=== PATIENT | male | born 1945 | race Caucasian/White ===

== ENCOUNTER → 2016-07-19 | Outpatient (CLI) | payer OTHER, MEDICARE | END | disposition home or self-care (01) | LOC: C.PATHSPEC 16:54 | PROVIDERS: ATTEND Urology | DX: C67.9 Malignant neoplasm of bladder, unspecified (principal) ==

== ENCOUNTER → 2016-07-19 | Outpatient (CLI) | payer OTHER, MEDICARE ==
--- NOTE | 2016-07-19 08:57 | DIAGNOSTIC IMAGING REPORT ---
ULTRASOUND KIDNEYS AND BLADDER CLINICAL HISTORY: Renal cyst. COMPARISON STUDY: Renal ultrasound dated 05/07/2013. Abdominal CT dated 10/15/2007. TECHNIQUE: Real-time, grayscale, and color flow sonography of the kidneys and bladder is performed. Images are reviewed in the transverse and longitudinal planes. FINDINGS: Kidneys: The right kidney is not identified and surgically absent. The left kidney is normal in size and echotexture, measuring 12.1 x 6.6 x 6.3 cm. There is no left-sided hydronephrosis. No shadowing renal calculi are identified. There is no sonographic evidence of solid mass lesion. There are several simple appearing cysts noted in the left kidney. The largest measures up to 2.2 cm. These are similar in appearance to previous. No perinephric fluid is identified. Bladder: The prostate gland is enlarged and there is median lobe hypertrophy. The bladder wall appears mildly thickened and trabeculated consistent with chronic outlet obstruction. Bilateral ureteral jets were seen. IMPRESSION: 1. The right kidney is surgically absent. 2. The left kidney is normal in size and without hydronephrosis. 3. Small simple appearing left renal cysts are not significantly changed from previous measuring up to 2.2 cm. 4. Prostatomegaly with evidence of chronic bladder outlet obstruction. Electronically signed by: Ashkan Ruffin M.D. 07/19/2016 8:56 AM Dictated Date/Time: 07/19/2016 8:53 AM
== END | disposition home or self-care (01) ==
LOC: C.ULTR 08:30
PROVIDERS: ATTEND Urology
DX: N28.1 Cyst of kidney, acquired (principal); Z90.5 Acquired absence of kidney; N40.0 Benign prostatic hyperplasia without lower urinary tract symptoms; C67.9 Malignant neoplasm of bladder, unspecified

== ENCOUNTER → 2017-03-14 | Outpatient (CLI) | payer OTHER, MEDICARE | END | disposition home or self-care (01) | LOC: C.PATHSPEC 17:31 | PROVIDERS: ATTEND Urology | DX: C67.9 Malignant neoplasm of bladder, unspecified (principal); R97.20 Elevated prostate specific antigen [PSA] ==